=== PATIENT | female | born 1955 ===

== ENCOUNTER → 2018-04-08 17:44 | Outpatient (REF) | payer BC, SELFPAY ==
[2018-04-08 18:23] LABS: Add Manual Diff / Slide Review NO; Basophils Absolute Auto 0 /uL (0-100); Basophils Percent Auto 0.5 % (0-2); Eosinophils Absolute Auto 100 /uL (0-450); Eosinophils Percent Auto 1.7 % (2-4); Hematocrit 40.6 % (36-46); Hemoglobin 13.3 g/dL (12.0-16.0); Lymphocytes Absolute Auto 2100 /uL (1100-4500); Lymphocytes Percent Auto 42.9 % (25-40); Mean Corpuscular HGB Conc 32.8 % (30-36); Mean Corpuscular Hemoglobin 30.6 PG (26-34); Mean Corpuscular Volume 93.4 fL (80-100); Monocytes Absolute Auto 400 /uL (0-900); Monocytes Percent Auto 7.4 % (3-14); Neutrophils Absolute Auto 2300 /uL (1500-7000); Neutrophils Percent Auto 47.5 % (50-75); Platelet Count 241 X10^3/uL (150-400); Red Blood Cell Count 4.34 X10^6/uL (4.0-5.2); White Blood Cell Count 4.9 X10^3/uL (4.5-11.0)
[2018-04-08 18:36] LABS: Alanine Aminotransferase 29 IU/L (9-52); Albumin 4.5 g/dL (3.5-5.0); Albumin Globulin Ratio 1.7 (1.0-2.8); Alkaline Phosphatase 57 U/L (38-126); Aspartate Aminotransferase 25 IU/L (14-36); Bilirubin Total 0.5 mg/dL (0.2-1.3); Blood Urea Nitrogen 12 mg/dL (7-17); Calcium 9.5 mg/dL (8.4-10.2); Carbon Dioxide 28 mmol/L (22-32); Chloride 101 mmol/L (98-107); Cholesterol 209 mg/dL (140-199); Estimated Glomerular Filt Rate > 60.0 mL/min (>60); Globulin 2.7 g/dL (1.7-4.1); Glucose 86 mg/dL (80-110); HEMOLYSIS < 15 (0-50); Potassium 4.2 mmol/L (3.4-5.1); Sodium 138 mmol/L (137-145); Total Protein 7.2 g/dL (6.3-8.2); Triglycerides 102 mg/dL (35-150)
[2018-04-08 18:48] LABS: Free T3, Triiodothyronine Free 3.34 pg/mL (2.77-5.27); Free T4, Direct Thyroxine 0.88 ng/dL (0.78-2.19); T4 Total Thyroxine 6.85 ug/dL (5.5-11.0); T7 (Free Thyroxine Index) 2.03 (1.65-3.89); Triiodothryronine T3 Uptake 29.7 % (23.5-40.5)
[2018-04-08 18:53] LABS: HDL Cholesterol 55 mg/dL (40-60); LDL Cholesterol Calculated 134 mg/dL (<100)
[2018-04-08 19:02] LABS: Thyroid Stimulating Hormone 2.58 uIU/mL (0.47-4.68)
[2018-04-10 19:06] LABS: Triiodothyronine T3 Total 102 ng/dL (76-181)
[2018-04-12 14:36] LABS: Anti Thyroglobulin Antibody < 1 IU/mL (< 2); Thyroid Peroxidase Antibodies 246 IU/mL (< 9)
== END ==
LOC: LAB 17:44
PROVIDERS: Visit Provider Physician Assistant Medical
DX: Z00.00 Encounter for general adult medical examination without abnormal findings (principal); Z13.220 Encounter for screening for lipoid disorders; Z13.29 Encounter for screening for other suspected endocrine disorder
CPT/HCPCS: 36415; 80053; 80061; 84436; 84439; 84443; 84479; 84480; 84481; 85025; 86376; 86800